=== PATIENT | male | born 1950 ===

== ENCOUNTER 2019-05-20 11:13 | Emergency (ER) | payer OTHER, SELFPAY ==
[2019-05-20 11:20] VITALS: BP 129/107; PULSE 122; RESP 16; TEMP 36.7; O2SAT 98; BMI 25.9
[2019-05-20 12:14] LABS: Basophils # 0.1 10^3/uL (0.0-0.1); Basophils % 2.1 %; Eosinophils # 0.8 10^3/uL (0.0-0.8); Eosinophils % 16.8 %; Hematocrit 49.6 % (42.0-52.0); Hemoglobin 16.4 g/dL (11.7-16.6); Lymphocytes # 1.1 10^3/uL (0.8-4.8); Lymphocytes % 23.4 %; Mean Corpuscular HGB Conc 33.1 g/dL (30.0-36.0); Mean Corpuscular Hemoglobin 32.1 pg (28.0-34.0); Mean Corpuscular Volume 97.1 fL (80-94); Mean Platelet Volume 9.8 fL (7.4-10.4); Monocytes # 0.3 10^3/uL (0.2-0.9); Monocytes % 6.8 %; Neutrophils # 2.5 10^3/uL (1.8-7.7); Neutrophils % 50.7 %; Nucleated Red Blood Cells % 0 %; Platelet Count 239 10^3/cmm (130-400); Red Blood Count 5.11 10^6/uL (4.1-5.3); Red Cell Distribution Width 11.9 % (12.1-15.1); White Blood Count 4.9 10^3/uL (4.0-10.0)
[2019-05-20 12:59] LABS: Alanine Aminotransferase 27 U/L (0-41); Albumin Level 4.8 g/dL (3.5-5.2); Alkaline Phosphatase 100 IU/L (40-130); Anion Gap 19.1 (5-19); Aspartate Amino Transferase 20 U/L (0-40); Blood Urea Nitrogen 10 mg/dL (8-23); Calcium 10.2 mg/dL (8.5-10.5); Carbon Dioxide 25 mmol/L (22-29); Chloride 103 mmol/L (98-107); Globulin 2.8 g/dL (1.3-4.6); Glomerular Filtration Rate 73.9 mL/min (90-130); Glucose 110 mg/dL (74-106); Potassium 4.1 mmol/L (3.5-5.1); Sodium 143 mmol/L (136-145); Total Bilirubin 0.3 mg/dL (0.15-1.2); Total Protein 7.6 g/dL (6.6-8.7)
[2019-05-20 13:00] LABS: Troponin(5th) Baseline 16 ng/mL (0-15)
--- NOTE | 2019-05-20 13:26 | ECG_ITS ---
Measurements Intervals [place] Rate: 122 P: 66 HI: 233 QRS: 23 QRSD: 106 T: 60 QT: 400 QTc: 571 SINUS TACHYCARDIA WITH FIRST DEGREE AV BLOCK INCOMPLETE RIGHT BUNDLE BRANCH BLOCK [90+ ms QRS DURATION, TERMINAL R IN V1/V2, 40+ ms S IN I/aVL/V4/V5/V6] MODERATE ST DEPRESSION [0.05+ mV ST DEPRESSION] INTERPRETATION BASED ON A DEFAULT AGE OF 40 YEARS No previous ECG available for comparison Electronically Signed On 05-20-2019 15:39:57 MAIL DISTRIBUTION CLERK by Belinda Patel M.D. [id number]
[2019-05-20 14:38] LABS: Troponin 5 2HR 17.09 ng/mL (0-15); Troponin 5 2HR Delta 1.09 ABS# (0-10)
--- NOTE | 2019-05-20 16:44 | PC.NURSE ---
Patient denies any symptoms, was sent here from PCP office for increased heart rate. Patient states he's been going to the gym for the past 2 months, has no difficulties with heart condition during exertion.
--- NOTE | 2019-05-20 17:26 | ECG_ITS ---
Measurements Intervals [place] Rate: 121 P: 80 RI: 228 QRS: 17 QRSD: 98 T: 35 QT: 340 QTc: 484 SINUS TACHYCARDIA WITH FIRST DEGREE AV BLOCK INCOMPLETE RIGHT BUNDLE BRANCH BLOCK [90+ ms QRS DURATION, TERMINAL R IN V1/V2, 40+ ms S IN I/aVL/V4/V5/V6] MODERATE ST DEPRESSION [0.05+ mV ST DEPRESSION] No previous ECG available for comparison Electronically Signed On 05-20-2019 15:37:53 SOLDERING MACHINE TENDER by Belinda Patel M.D. [id number]
--- NOTE | 2019-05-20 17:59 | W.ED.CHESTPA ---
HPI - Chest Pain General: Chief Complaint: Chest Pain Stated Complaint: heart rate is irregular Time Seen by Provider: 05/20/19 17:36 Source: patient Mode of arrival: ambulatory Limitations: no limitations History of Present Illness: HPI narrative: Patient is a 68-year-old male who presents to ED today at the recommendation of the [place]; patient states he was at his urology appointment and [place] and they noticed on patient's routine vitals that he was tachycardic so they decided to do an EKG; apparently based on the results of the EKG he was sent to the emergency department for further evaluation; patient states he has absolutely no chest pain, shortness of breath, difficulty breathing, lightheadedness/dizziness, palpitations; patient states he is completely asymptomatic and does not know why he was referred to the ED for evaluation; patient has no previous history of tachycardia; he states he exercises daily and has not noticed any shortness of breath or exercise intolerance; patient has no previous heart disease; his only risk factor is hypertension MD complaint: other (Tachycardia) Prior episodes: No Relieving factors: nothing Exacerbating factors: nothing Associated symptoms: Reports no associated symptoms; Deny abdominal pain, dyspnea, fever(s), nausea, palpitations, syncope or vomiting Review of Systems Const: Denies: fever or chills Eyes: Denies: change in vision or blurry vision Card: Denies: chest pain, palpitations, irregular heart rhythm, edema, lightheadedness, syncope, pre-syncope, shortness of breath on exertion or shortness of breath when lying down Resp: Denies: shortness of breath, productive cough, non-productive cough, wheezing, stridor, pain on inspiration, change in phlegm color, coughing up blood or chest congestion GI: Denies: abdominal pain, nausea, vomiting, heartburn/indigestion or diarrhea : Denies: flank pain, difficulty urinating or painful urination Musc: Denies: neck pain, back pain or joint pain Skin/Breast: Denies: rash PFSH ED PFSH: Statuses (acute, chronic, etc) shown below reflect problem list status as previously entered and may not be historically accurate Social History Smoking and tobacco status: former smoker Physical Exam Const: COMMON NORMALS: no apparent distress, oriented x3, alert and well nourished HENMT: COMMON NORMALS: normocephalic and head/scalp atraumatic HEAD & SCALP: normocephalic and atraumatic Neck/C-Spine: COMMON NORMALS: full ROM, no lymphadenopathy, supple and no meningeal signs Chest: COMMONS NORMALS: inspection of chest normal Resp: COMMON NORMALS: normal respiratory effort and clear to auscultation bilaterally AUSCULTATION: clear to auscultation bilaterally Cardio: COMMON NORMALS: regular rhythm RATE: tachycardic RHYTHM: regular rhythm GI: COMMON NORMALS: normal to inspection, nondistended, normoactive bowel sounds, soft to palpation, non-tender, no hepatosplenomegaly and no masses PALPATION: Yes soft and Yes no hepatosplenomegaly : COMMON NORMALS: Yes no CVA tenderness BLADDER/KIDNEY EXAM: Yes no CVA tenderness Back/Pelvis: COMMON NORMALS: no CVA tenderness and thoracic and lumbar spine normal to inspection Extremity: COMMON NORMALS: normal to inspection Neuro: COMMON NORMALS: oriented x3 SENSORIUM/ORIENTATION: Yes alert MENINGEAL SIGNS: Yes no meningeal signs Skin: COMMON NORMALS: no rashes or lesions noted GENERAL SKIN EXAM: no rashes or lesions noted Course Vital Signs: Vital signs: Vital Signs Temperature 98.0 F 05/20/19 11:20 Pulse Rate 122 H 05/20/19 18:19 Respiratory Rate 18 05/20/19 18:19 Blood Pressure 135/95 05/20/19 18:19 Pulse Oximetry 96 05/20/19 18:19 MDM - Chest Pain MDM Narrative: Medical decision making narrative: Again patient is completely asymptomatic here; he has absolutely no red flags on history; his repeat EKGs here showing sinus tach with an incomplete RBBB but there is no acute ST elevation or depression noted; patient's initial troponin was 16 and a repeat was 17; again his only risk factor is hypertension; spoke to Dr. Norris regarding patient's case and he also reviewed patient's EKGs; he agreed with the plan of switching out 1 of patient's blood pressure medications with metoprolol and having him follow-up with Lab Data: Labs: Lab Results 05/20/19 05/20/19 05/20/19 Range/Units 12:00 12:00 12:00 WBC 4.9 (4.0-10.0) 10^3/ uL RBC 5.11 (4.1-5.3) 10^6/u L Hgb 16.4 (11.7-16.6) g/dL Hct 49.6 (42.0-52.0) % MCV 97.1 H (80-94) fL MCH 32.1 (28.0-34.0) pg MCHC 33.1 (30.0-36.0) g/dL RDW 11.9 L (12.1-15.1) % Plt Count 239 (130-400) 10^3/c mm MPV 9.8 (7.4-10.4) fL Neut % (Auto) 50.7 % Lymph % (Auto) 23.4 % [place] % (Auto) 6.8 % Eos % (Auto) 16.8 % Baso % (Auto) 2.1 % Neut # (Auto) 2.5 (1.8-7.7) 10^3/u L Lymph # (Auto) 1.1 (0.8-4.8) 10^3/u L [place] # (Auto) 0.3 (0.2-0.9) 10^3/u L Eos # (Auto) 0.8 (0.0-0.8) 10^3/u L Baso # (Auto) 0.1 (0.0-0.1) 10^3/u L Nucleated RBC % (a uto) 0 % Nucleated RBCs # 0.0 /100WBC PT 12.40 (10.5-13.3) SECO NDS INR 0.90 (0.8-1.2) Sodium 143 (136-145) mmol/L Potassium 4.1 (3.5-5.1) mmol/L Chloride 103 (98-107) mmol/L Carbon Dioxide 25 (22-29) mmol/L Anion Gap 19.1 H (5-19) BUN 10 (8-23) mg/dL Creatinine 1.0 (0.7-1.2) mg/dL GFR Calculation 73.9 L (90-130) mL/min Glucose 110 H (74-106) mg/dL Calcium 10.2 (8.5-10.5) mg/dL Total Bilirubin 0.3 (0.15-1.2) mg/dL AST 20 (0-40) U/L ALT 27 (0-41) U/L Alkaline Phosphata se 100 (40-130) IU/L Troponin I 6 Hour (0-15) ng/L Troponin I Hi Sens Del (0-12) ng/L Troponin T Baselin e (0-15) ng/mL Troponin T 120 Min [place] (0-15) ng/mL Delta Troponin T (0-10) ABS# Total Protein 7.6 (6.6-8.7) g/dL Albumin 4.8 (3.5-5.2) g/dL Globulin 2.8 (1.3-4.6) g/dL 05/20/19 05/20/19 05/20/19 Range/Units 12:00 14:10 18:05 WBC (4.0-10.0) 10^3/ uL RBC (4.1-5.3) 10^6/u L Hgb (11.7-16.6) g/dL Hct (42.0-52.0) % MCV (80-94) fL MCH (28.0-34.0) pg MCHC (30.0-36.0) g/dL RDW (12.1-15.1) % Plt Count (130-400) 10^3/c mm MPV (7.4-10.4) fL Neut % (Auto) % Lymph % (Auto) % [place] % (Auto) % Eos % (Auto) % Baso % (Auto) % Neut # (Auto) (1.8-7.7) 10^3/u L Lymph # (Auto) (0.8-4.8) 10^3/u L [place] # (Auto) (0.2-0.9) 10^3/u L Eos # (Auto) (0.0-0.8) 10^3/u L Baso # (Auto) (0.0-0.1) 10^3/u L Nucleated RBC % (a uto) % Nucleated RBCs # /100WBC PT (10.5-13.3) SECO NDS INR (0.8-1.2) Sodium (136-145) mmol/L Potassium (3.5-5.1) mmol/L Chloride (98-107) mmol/L Carbon Dioxide (22-29) mmol/L Anion Gap (5-19) BUN (8-23) mg/dL Creatinine (0.7-1.2) mg/dL GFR Calculation (90-130) mL/min Glucose (74-106) mg/dL Calcium (8.5-10.5) mg/dL Total Bilirubin (0.15-1.2) mg/dL AST (0-40) U/L ALT (0-41) U/L Alkaline Phosphata se (40-130) IU/L Troponin I 6 Hour 15.29 H (0-15) ng/L Troponin I Hi Sens Del -0.71 L (0-12) ng/L Troponin T Baselin e 16 H (0-15) ng/mL Troponin T 120 Min [place] 17.09 H (0-15) ng/mL Delta Troponin T 1.09 (0-10) ABS# Total Protein (6.6-8.7) g/dL Albumin (3.5-5.2) g/dL Globulin (1.3-4.6) g/dL Discharge Plan Discharge Patient Disposition: Home, Self-Care Clinical Impression: Tachycardia Condition: Stable Prescriptions: New metoprolol tartrate 25 mg tablet 25 mg PO Q12H Qty: 60 RF: 0 Discharge Orders: Discharge Order (Routine); Ordered 05/20/19 Ordered By: Carline Vitale Referrals: Joseph Vega [Family Provider] - Discharge Diet: Usual diet Discharge Activity: Resume usual activity Activity Restrictions/Additional Instructions: DISCONTINUE YOUR AMLODIPINE . WE WILL START YOU ON METOPROLOL TO HELP WITH YOUR HEART RATE. PLEASE FOLLOW [facility] WITH [facility] SO[facility] POSSIBLE. RETURN TO ED FOR ANY CHEST PAIN, SHORTNESS OF BREATH, PALPITATIONS, LIGHTHEADEDNESS OR ANY OTHER CONCERNS YOU MAY HAVE. Discharge Date/Time: 05/20/19 18:15 Coding Level of Care Code ED Automotive Parts Advisor for Laurentg Fwd Exam Problem Focused
[2019-05-20 18:19] VITALS: BP 135/95; PULSE 122; RESP 18; O2SAT 96
[2019-05-20 18:37] LABS: Troponin 5 6HR 15.29 ng/L (0-15)
[2019-05-20 18:41] LABS: Troponin 5 6HR Delta -0.71 ng/L (0-12)
== END 2019-05-20 18:15 | disposition home or self-care (01) ==
PROVIDERS: Emergency Medicine; Emergency Provider Physician Assistant; Family Provider Internal Medicine
DX: R00.0 Tachycardia, unspecified (principal); Z87.891 Personal history of nicotine dependence
CPT/HCPCS: 36415; 80053; 84484; 85025; 85610; 93005; 99281

== ENCOUNTER 2019-07-19 20:00 | Outpatient (CLI) | payer OTHER, SELFPAY | END 2019-07-19 20:01 | disposition home or self-care (01) | LOC: SLEEP 07-20 10:33 | PROVIDERS: Family Provider Internal Medicine; PCP Internal Medicine; Visit Provider Internal Medicine | DX: G47.33 Obstructive sleep apnea (adult) (pediatric) (principal) | CPT/HCPCS: 95810 ==

== ENCOUNTER 2019-10-05 20:00 | Outpatient (CLI) | payer OTHER, SELFPAY | END 2019-10-05 20:01 | disposition home or self-care (01) | LOC: SLEEP 10-06 09:51 | PROVIDERS: Family Provider Internal Medicine; PCP Internal Medicine; Visit Provider Internal Medicine | DX: G47.33 Obstructive sleep apnea (adult) (pediatric) (principal) | CPT/HCPCS: 95811 ==

== ENCOUNTER 2020-05-24 08:45 | Emergency (ER) | payer OTHER, SELFPAY ==
[2020-05-24 08:49] VITALS: BP 149/105; PULSE 122; RESP 16; TEMP 36.8; O2SAT 100; BMI 26.5
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
[2020-05-24 08:56] VITALS: O2SAT 96
--- NOTE | 2020-05-24 09:04 | PC.NURSE ---
pt to radiology by stretcher with tech
[2020-05-24 09:40] LABS: Basophils # 0.1 10^3/uL (0.0-0.1); Basophils % 0.8 %; Eosinophils % 0.4 %; Hematocrit 46.7 % (42.0-52.0); Hemoglobin 15.7 g/dL (11.7-16.6); Lymphocytes # 0.5 10^3/uL (0.8-4.8); Lymphocytes % 6.5 %; Mean Corpuscular HGB Conc 33.6 g/dL (30.0-36.0); Mean Corpuscular Hemoglobin 33.7 pg (28.0-34.0); Mean Corpuscular Volume 100.2 fL (80-94); Mean Platelet Volume 10.1 fL (7.4-10.4); Monocytes # 0.4 10^3/uL (0.2-0.9); Monocytes % 5.9 %; Neutrophils # 6.36 10^3/uL (1.8-7.7); Nucleated Red Blood Cells % 0 %; Platelet Count 154 10^3/cmm (130-400); Red Blood Count 4.66 10^6/uL (4.1-5.3); Red Cell Distribution Width 12.5 % (12.1-15.1); White Blood Count 7.4 10^3/uL (4.0-10.0)
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
[2020-05-24 09:54] LABS: Alanine Aminotransferase 25 U/L (0-41); Albumin Level 4.4 g/dL (3.5-5.2); Alkaline Phosphatase 115 IU/L (40-130); Anion Gap 15.6 (5-19); Aspartate Amino Transferase 36 U/L (0-40); Blood Urea Nitrogen 19 mg/dL (8-23); Calcium 9.5 mg/dL (8.5-10.5); Carbon Dioxide 27 mmol/L (22-29); Chloride 100 mmol/L (98-107); Globulin 3.1 g/dL (1.3-4.6); Glucose 126 mg/dL (65-115); Osmolality Calculated 292 mOsm/kg (285-295); Potassium 3.6 mmol/L (3.5-5.1); Sodium 139 mmol/L (136-145); Total Bilirubin 1.7 mg/dL (0.15-1.2); Total Protein 7.5 g/dL (6.6-8.7)
[2020-05-24] MEDS: ondansetron 2 mg/ML SDV 2 mL 4 MG IM (10:14)
[2020-05-24] MEDS: morphine 4 mg/mL SDV 1 mL IM (10:15)
[2020-05-24 10:18] VITALS: BP 149/105; PULSE 129; O2SAT 98
[2020-05-24 10:32] LABS: Protein Urine 1+ (Negative); Urine Appearance Clear (CLEAR); Urine Color Amber (Yellow); pH Urine 5 (5-7)
[2020-05-24 10:33] LABS: Add Urine Microscopic? YES; Bacteria Urine TRACE /hpf; Bilirubin Urine Neg (Negative); Blood Urine 3+ (Negative); Glucose Urine UA Norm (Normal); Ketones Urine 1+ (Negative); Leukocyte Esterase Urine Negative (Negative); Mucus Urine 1+ /hpf; Nitrate Urine Negative (Negative); RBC Urine 0-4 /hpf (0-2); Squamous Epithelial Cell Urine 0-4 /hpf (0-5); Urobilinogen Urine 1 mg/dL (Negative); WBC Urine 0-4 /hpf (0-5)
--- NOTE | 2020-05-24 11:04 | PC.NURSE ---
physical therapy in room
[2020-05-24] MEDS: amlodipine 5 mg Tablet PO (11:49)
[2020-05-24 11:54] VITALS: BP 151/89; PULSE 124; O2SAT 96
--- NOTE | 2020-05-24 11:55 | PC.NURSE ---
nurse in room to ask pt why he has not put back brace on and pt states I can't sit up it hurts too damn bad. ER physician notified. orders received.
[2020-05-24] MEDS: HYDROmorphone 1 mg/mL INJ 1 mL 0.5 MG IM (12:02)
--- NOTE | 2020-05-24 12:46 | PC.NURSE ---
pt able to ambulate with PT with back brace and walker
--- NOTE | 2020-05-24 14:12 | DCPLANNER ---
solar sales manager was asked to schedule a follow up appointment for patient with Dr. Yap at ortho for today. Patient has [facility], Dr. Yap is not in network with the [facility]. solar sales manager checked with patient to see if he had any other insurance besides [facility]. Patient stated that he did have medicare, and for life. solar sales manager spoke with registration to see if patients other insurance could be put into the computer. solar sales manager spoke with patient, and asked patient if he wanted to be seen at the ortho clinic today and use his medicare and insurance, patient stated that he would use his medicare and . solar sales manager called the ortho clinic and told the clinic that patient would use his medicare and insurance. solar sales manager also sent patients records from the ER to [place] with [facility] so the [facility] would have patients information from the ER visit.
--- NOTE | 2020-05-31 14:30 | DCPLANNER ---
Patient had a follow up appointment scheduled for 05.24.20 with ortho - patient did attend appointment.
== END 2020-05-24 13:00 | disposition home or self-care (01) ==
PROVIDERS: Emergency Provider Family Medicine; PCP Internal Medicine
DX: S32.020A Wedge compression fracture of second lumbar vertebra, initial encounter for closed fracture (principal); Z79.82 Long term (current) use of aspirin; I48.92 Unspecified atrial flutter; E78.5 Hyperlipidemia, unspecified; I10 Essential (primary) hypertension; Z85.46 Personal history of malignant neoplasm of prostate; Z87.891 Personal history of nicotine dependence; V89.2XXA Person injured in unspecified motor-vehicle accident, traffic, initial encounter
CPT/HCPCS: 12345; 36415; 72100; 72131; 80053; 81001; 85025; 96372; 97161; 99282; 99283; J1170; J2270; J2405; L0456

== ENCOUNTER → 2020-06-07 09:10 | Outpatient (BNVA) | payer MEDICARE, OTHER, SELFPAY | PROVIDERS: PCP Internal Medicine; Visit Provider Orthopaedic Surgery | DX: S32.010A Wedge compression fracture of first lumbar vertebra, initial encounter for closed fracture (principal); S32.020A Wedge compression fracture of second lumbar vertebra, initial encounter for closed fracture; X58.XXXA Exposure to other specified factors, initial encounter; M47.894 Other spondylosis, thoracic region; M51.37 Other intervertebral disc degeneration, lumbosacral region | CPT/HCPCS: 72100 ==